=== PATIENT | female | born 1940 | race Two or more races ===

== ENCOUNTER 2024-04-15 19:41 | Emergency (ER) | payer OTHER ==
[~2024-04-15] VITALS: Ht 154.9 cm; Wt 49.4 kg
[2024-04-15] MEDS ORDERED: LEVOTHYROXINE25 MCG PO (20:02)
[2024-04-15] MEDS ORDERED: ZESTRIL5 MG PO (20:04)
[2024-04-15] MEDS ORDERED: FLUOXETINE HCL60 MG PO (20:04)
[2024-04-15] MEDS ORDERED: CLONAZEPAM0.5 M1 PO (20:04)
[2024-04-15] MEDS ORDERED: ATORVASTATIN CA10 MG PO (20:04)
[2024-04-15] MEDS ORDERED: LABETALOL HCL 200 MG/40 ML VIAL IV ONE (20:45)
[2024-04-15] MEDS ORDERED: LABETALOL HCL 100 MG/20 ML ML ONE (22:29)
[2024-04-15 23:08] LABS: HEMATOCRIT 34.3 % (36.0-45.00); HEMOGLOBIN 11.4 g/dL (12.0-15.00); MEAN CELL VOLUME 91.4 fL (80.00-100.00); MEAN CORPUSCULAR HEMOGLOBIN 30.4 pg (27.00-32.0); MEAN CORPUSCULAR HGB CONC 33.2 g/dl (32.0-36.0); PLATELET COUNT 191 K/uL (150-450); RED BLOOD COUNT 3.76 M/uL (4.00-6.00); RED CELL DISTRIBUTION WIDTH 12.9 % (11.5-14.5)
[2024-04-15 23:26] LABS: INR 1.03; PARTIAL THROMBOPLASTIN TIME 24.5 SECONDS (22.0-34.0); PROTHROMBIN TIME 11.2 SECONDS (9.0-11.5)
[2024-04-15 23:31] LABS: ALBUMIN 3.6 gm/dL (3.4-5.0); BILIRUBIN TOTAL 0.43 mg/dL (0.3-1.2); CALCIUM 8.8 mg/dL (8.5-10.1); CREATININE SERUM 0.98 mg/dL (0.55-1.02); GFR 54.07; GLOBULINA 3.5 G/DL (2.4-3.5); POTASSIUM 4.28 mEq/L (3.5-5.1); TOTAL PROTEIN 7.1 gm/dL (6.4-8.2)
[2024-04-15 23:52] LABS: URINE APPEARANCE Clear; URINE BILIRRUBIN Negative (NEGATIVE); URINE BLOOD Negative; URINE COLOR Yellow; URINE GLUCOSE Negative (NEGATIVE); URINE KETONE Negative (NEGATIVE); URINE LEUKOCYTE Small; URINE NITRATE Negative; URINE PROTEIN Negative (NEGATIVE); URINE UROBILINOGEN 0.2 E.U./dl
[2024-04-15 23:57] LABS: URINE EPITHELIAL CELLS 3.3 uL (0.0-38.8); URINE WBC 14.3 uL (0.0-23.2)
== END 2024-04-16 00:35 | disposition home or self-care (01) ==
LOC: ER 19:44 → EDBD 22:03 → ER 22:03
PROVIDERS: General Practice
DX: R00.2 Palpitations (principal); R20.2 Paresthesia of skin; Z85.3 Personal history of malignant neoplasm of breast; E78.00 Pure hypercholesterolemia, unspecified; E03.8 Other specified hypothyroidism; I10 Essential (primary) hypertension; Z20.822 Contact with and (suspected) exposure to COVID-19; Z88.6 Allergy status to analgesic agent
CPT/HCPCS: 36415; 70450; 71046; 93005; 96365; 99284; J3490